=== PATIENT | male | born 1935 | race Hispanic/Latino ===

== ENCOUNTER 2019-01-12 16:32 | Emergency (ER) | payer OTHER, MEDICARE ==
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
[2019-01-12] MEDS ORDERED: ACETAMINOPHEN 500 MG TAB PO ONE (18:37)
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
[2019-01-12 19:52] VITALS: BP 90/51
== END 2019-01-12 19:45 | disposition home or self-care (01) ==
LOC: ED 16:32
DX: S20.212A Contusion of left front wall of thorax, initial encounter (principal); G44.319 Acute post-traumatic headache, not intractable; M79.662 Pain in left lower leg; E11.9 Type 2 diabetes mellitus without complications; Z95.5 Presence of coronary angioplasty implant and graft; Z87.891 Personal history of nicotine dependence; Z79.899 Other long term (current) drug therapy; V49.49XA Driver injured in collision with other motor vehicles in traffic accident, initial encounter; Y93.89 Activity, other specified; Y92.410 Unspecified street and highway as the place of occurrence of the external cause; Y99.8 Other external cause status
CPT/HCPCS: 70450; 72125